=== PATIENT | male | born 1985 | race American Indian/Alaskan Native ===

== ENCOUNTER 2020-01-09 12:14 | Emergency (ER) | payer OTHER ==
[2020-01-09 12:23] VITALS: BP 125/69
[2020-01-09] MEDS ORDERED: IBUPROFEN 800 MG TAB PO ONE (13:01)
--- NOTE | 2020-01-09 13:32 | XRay Report ---
Cervical spine 3 views Indication: neck pain Findings: There is no fracture, subluxation, or other acute radiographic abnormality of the cervical spine. Dis c space heights are maintained. Prevertebral soft tissues are unremarkable. Signer Name: Joe Qureshi MD Signed: 01/09/2020 1:27 PM Workstation Name: [id number]
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
== END 2020-01-09 13:58 | disposition home or self-care (01) ==
LOC: ED 12:14
DX: S13.4XXA Sprain of ligaments of cervical spine, initial encounter (principal); F17.200 Nicotine dependence, unspecified, uncomplicated; Z79.1 Long term (current) use of non-steroidal anti-inflammatories (NSAID); Z79.2 Long term (current) use of antibiotics; Z79.899 Other long term (current) drug therapy; V49.49XA Driver injured in collision with other motor vehicles in traffic accident, initial encounter; Y93.89 Activity, other specified; Y92.410 Unspecified street and highway as the place of occurrence of the external cause; Y99.8 Other external cause status
CPT/HCPCS: 72040

== ENCOUNTER 2022-03-04 10:19 | Emergency (ER) | payer SELFPAY ==
[2022-03-04 10:52] VITALS: BP 119/71
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
== END 2022-03-04 12:20 | disposition home or self-care (01) ==
LOC: ED 10:19
DX: M54.59 Other low back pain (principal); F17.290 Nicotine dependence, other tobacco product, uncomplicated
CPT/HCPCS: 99282